=== PATIENT | female | born 1975 | race Caucasian/White ===

== ENCOUNTER 2018-05-04 21:46 | Emergency (ER) | payer BC ==
[~2018-05-04] VITALS: Ht 160 cm; Wt 72.7 kg
[2018-05-04 21:59] VITALS: Ht 160 cm; Wt 72.7 kg
[2018-05-04] MEDS ORDERED: LEXAPRO10 MG (22:01)
[2018-05-04] MEDS ORDERED: VYVANSE20 MG (22:01)
[2018-05-04] MEDS ORDERED: ZOFRAN4 MG PO (23:33)
[2018-05-04] MEDS ORDERED: TYLENOL W/CODEI1 TAB PO (23:33)
[2018-05-05 00:15] VITALS: BP 115/78
== END 2018-05-05 00:15 | disposition home or self-care (01) ==
LOC: D.ER 21:46
DX: S06.0X9A Concussion with loss of consciousness of unspecified duration, initial encounter (principal); W18.30XA Fall on same level, unspecified, initial encounter; Y93.89 Activity, other specified; Y92.018 Other place in single-family (private) house as the place of occurrence of the external cause; S39.012A Strain of muscle, fascia and tendon of lower back, initial encounter; S00.03XA Contusion of scalp, initial encounter

== ENCOUNTER 2018-07-02 08:00 | Outpatient (CLI) | payer BC ==
[2018-05-04 21:59] VITALS: BMI 28.4
[~2018-07-02 08:00] MED LIST: LEXAPRO10 MG; TYLENOL W/CODEI1 TAB PO; VYVANSE20 MG; ZOFRAN4 MG PO
== END 2018-07-02 09:00 | disposition home or self-care (01) ==
LOC: D.MAMMO 08:00
DX: Z12.31 Encounter for screening mammogram for malignant neoplasm of breast (principal)